=== PATIENT | female | born 1985 | race Caucasian/White ===

== ENCOUNTER 2016-08-02 17:50 | Emergency (ER) | payer OTHER ==
[~2016-08-02] VITALS: Ht 160 cm; Wt 100.0 kg
[2016-08-02 18:10] VITALS: BP 121/84; PULSE 74; RESP 16; O2SAT 100
[2016-08-02 18:54] LABS: BASOPHILS % (AUTO) 0.2 % (0-3); EOSINOPHILS % (AUTO) 5.5 % (0-5); MONOCYTES % (AUTO) 4.8 % (4-12); Mean Corpuscular Hemoglobin 29.7 pg (27.0-35.0); Mean Corpuscular Volume 91.9 fL (81-100); Platelet Count 228 bil/L (150-400)
[2016-08-02] MEDS ORDERED: LEVO137T2 PO (19:12)
[2016-08-02] MEDS ORDERED: ALBU8.5H2 INHALATION (19:12)
[2016-08-02 20:56] VITALS: BP 110/68; PULSE 77; O2SAT 97
--- NOTE | 2016-08-02 21:19 | ED.REPORT ---
HPI-Psychiatric Illness Date of Service Aug 02, 2016 ED Provider: Lavern Bailey MD 30 year old female with history of depression with suicidal ideations, anxiety, and PTSD presents to ED admitting to having thoughts of suicide, with the patient informing her mother that she wanted to kill herself with a gun this evening. She has access to firearms and mom has taken gun away in past during similar instances. She describes experiencing depression related to recent life events. Patient states that she dropped her phone in the toilet yesterday and that she cannot stay in her house alone, as she does not feel safe. She recently had thoughts of jumping off [place] bridge. She has not been hospitalized for this condition before. Pt recently acquired [employer] insurance through the open enrollment and wants to go to counseling. Patient admits to being very anxious in the ED. She denies cough, abdominal pain, vomiting, diarrhea, headaches, weakness, chest pain, extremity pain, or generalized pain Nursing Notes Stated Complaint: SUICIDAL IDEATIONS Chief Complaint: Psychiatric Complaint Nursing Notes Reviewed: Yes Allergies: Coded Allergies: No Known Allergies (Unverified , 08/02/16) Scheduled Levothyroxine (Levothyroxine) 137 Mcg Tablet 137 MCG PO DAILY Scheduled PRN Albuterol HFA (Proair HFA) 8.5 Gm Hfa.aer.ad 2 PUFFS INHALATION Q4H PRN PRN For Wheezing Hydroxyzine HCl (HydrOXYzine Hcl) 50 Mg Tablet 50 MG PO Q6H PRN PRN For Anxiety General Time Seen by MD: 21:18 Chief Complaint Suicidal ideation Hx Obtained From: Patient, Other family... (Mother) Arrived By: Walk-in Onset Occurred: 1 - 4 hours ago Symptom Duration: Intermittent Progression Since Onset: Gradually improving Similar Sx Previous: Yes Risk-Psychiatric Illness Suicide Risk Stratification Suicide Risk Factors - Adult: : Access to firearms: Previous attemptNo: Prior psych admission RF Statements: Risk factors reviewed Past Medical History Past Medical History Has had suicidal ideation with plans in the past. Depression and anxiety PTSD hypothyroid Reports: Asthma Smoking History Current Some Day Smoker Social History Drug Use: THC Other Social History: Good social support, Local resident Ambulatory Status Independent Review of Systems Constitutional: Denies: Weakness - generalized Respiratory: Denies: Non-productive cough Cardiovascular: Denies: Chest pain GI: Denies: Diarrhea, Nausea, Vomiting Psychiatric: Reports: Anxiety, Depression, Suicidal ideation Complete sys rev & neg: except as marked. Musculoskeletal: Denies: Extremity pain Physical Exam Initial Vital Signs Vital Signs (First) Date Time Temp Pulse Resp B/P Pulse Ox O2 Delivery O2 Flow Rate FiO2 08/02/16 18:10 37.0 74 16 121/84 100 Room Air Initial VS: Reviewed, Vital signs normal Head / Eyes: Atraumatic, Normocephalic, PERRL ENT: Mucous membranes moist, Conjunctiva normal, No scleral icterus Extremities: Vascular intact, Neuro intact, No swelling Skin: Warm, Dry, No cyanosis General/Constitutional: Awake, Alert Neurologic: Oriented X3, Speech NL Psychiatric: Not homicidal, No hallucinations Abnormal Mood/Affect: Positive: Anxious, Depressed Abnormal Thinking / Perception: Positive: Suicidal, with plan (Patient has access to firearms and was planning to use a gun.) Head / Eyes: Atraumatic, Normocephalic, PERRL, EOMI Respiratory / Chest: Atraumatic, Breath sounds NL, Breath sounds = bilat Cardiovascular: Heart rate NL, Regular rhythm, Heart sounds NL, No gallop, No murmurs, No rubs Abdomen: Atraumatic, Soft, Non-tender, No guarding, No rebound Skin: Warm, Dry Neck: Atraumatic, Supple Interpretation & Diagnostics Lab Results Interpretation Result Diagram: 08/02/16182908/02/16 1830 Test 08/02/16 18:30 08/02/16 18:32 White Blood Count 12.2th/mm3 (3.8-10.1) Red Blood Count 5.08mil/mm3 (3.90-5.20) Hemoglobin 15.1g/dL (12.0-15.6) Hematocrit 46.7% (35.0-46.0) Mean Corpuscular Volume 91.9fL (81-100) Mean Corpuscular Hemoglobin 29.7pg (27.0-35.0) Mean Corpuscular Hemoglobin Concent 32.3% (32.0-37.0) Red Cell Distribution Width 14.1% (12.3-15.4) Platelet Count 228bil/L (150-400) Neutrophils (%) (Auto) 72.0% (40-74) Lymphocytes (%) (Auto) 17.3% (14-46) Monocytes (%) (Auto) 4.8% (4-12) Eosinophils (%) (Auto) 5.5% (0-5) Basophils (%) (Auto) 0.2% (0-3) Sodium Level 146mEq/L (134-144) Potassium Level 4.9mEq/L (3.5-5.2) Chloride Level 105mEq/L (97-108) Carbon Dioxide Level 26mmol/L (18-29) Blood Urea Nitrogen 5mg/dL (6-20) Creatinine 0.77mg/dL (0.57-1.00) Estimat Glomerular Filtration Rate 125mL/min (>59) Glucose Level 112mg/dL (60-99) Calcium Level 9.9mg/dL (8.5-10.1) Total Bilirubin 0.6mg/dL (0.0-1.2) Aspartate Amino Transf (AST/SGOT) 29U/L (0-50) Alanine Aminotransferase (ALT/SGPT) 37U/L (0-32) Alkaline Phosphatase 50U/L (25-150) Total Protein 7.0g/dL (6.4-8.4) Albumin 4.4g/dL (3.4-5.0) Thyroid Stimulating Hormone (TSH) 2.560uIU/mL (0.450-4.500) Hold Luu Top Tube Received (Received) Alcohol, Quantitative < 10mg/dL (0-10) Hold Urine Received (Received) Re-Eval/Medical Decision Med Decision/Clinical Course The patient presents with suicidal ideation, she is voluntary. She has been suicidal in the past has never gone through with any attempts. The patient has her mother with her who is willing to watch her. In speaking with the patient and her mother was felt that she would do better if she stayed with her mother, her mother says she will not leave her alone. The [facility] will contact her for an appointment unit tomorrow the next day. The patient does have gone however the mother took it away. Re-Evaluation/Progress : Time of Eval: 22:46 Patient Status: Condition improved Re-Evaluation/Progress Note: Patient's mother agrees to keep the patient safe at home. She was given a list of outpatient resources for urgent follow-up. Patient understands and agrees with the plan to be discharged home. Discharge instructions and follow-up discussed. All questions were addressed. Return to the ED warnings given. Counseled Regarding: Diagnosis, Need for follow-up, When/why to return to ED Discharge & Departure Impression: Primary Impression: Suicidal ideations Additional Impression: Anxiety )( Condition at Discharge: No danger to self, No danger to others Disposition: Home Discharge Condition All VS Reviewed: Yes Condition: Stable Patient Instructions: Generalized Anxiety Disorder (ED) Additional Instructions: You will be contacted by the Crisis Line tomorrow to set up an urgent appointment at [facility]. Look at the handout provided for other resources. If at any point you are feeling worse, you should return to the emergency room. Referrals: [facility] Scribe Attestation Portions of this note were transcribed by Elmer Hook and Antonina Loaiza. I, Dr. Bailey personally performed the history, physical exam and medical decision- making; I reviewed and confirmed the accuracy of the information in the transcribed note. Signed by: Elmer Hook and Kvng Joel, 08/03/2016 and 0053. Lavern Bailey MD Aug 02, 2016 21:19 Elmer Hook Aug 02, 2016 21:57 Antonina Loaiza Aug 02, 2016 22:43
[2016-08-02] MEDS ORDERED: LORazepam 1 mg Tablet PO ONE (21:50)
[2016-08-02] MEDS ORDERED: HYDR50TA76 PO (22:44)
[2016-08-02 22:58] VITALS: BP 110/68; PULSE 77; RESP 16; O2SAT 97
== END 2016-08-02 23:00 | disposition home or self-care (01) ==
LOC: SED 17:50
DX: R45.851 Suicidal ideations (principal); F41.9 Anxiety disorder, unspecified; J45.909 Unspecified asthma, uncomplicated; E03.9 Hypothyroidism, unspecified; F17.200 Nicotine dependence, unspecified, uncomplicated
CPT/HCPCS: 36415; 80053; 81002; 81025; 84443; 85025; 99283; G0480